=== PATIENT | female | born 1975 | race Caucasian/White ===

== ENCOUNTER 2018-05-22 13:26 | Emergency (ER) | payer BC ==
[2018-05-22] MEDS ORDERED: Morphine VIAL* 4 MG/ML VIAL (1 ml vial) IV ONE (18:03)
[2018-05-22] MEDS ORDERED: Ketorolac INJ* 30 MG/ML 1 ML VIAL IV PUSH ONE (18:03)
--- NOTE | 2018-05-22 18:38 | ED ---
GI/ HPI - HPI Summary HPI Summary: 43-year-old female presents with right lower quadrant pain for the past day. She has a history of ovarian cysts and states that it feels the same. She states the pain does not radiate anywhere. She denies any vaginal discharge. She has her tubes tied. No other surgeries. No nausea and vomiting. No diarrhea or constipation. No pain with urination. No frequency or urgency. Pain is 8 out of 10. laying down makes it better. no fevers. She hasn't taking anything for pain. She's had a normal appetite. - History of Current Complaint Chief Complaint: EDFlankPain Time Seen by Provider: 05/22/18 17:54 Stated Complaint: RT SIDE ABD PAIN Hx Last Menstrual Period: august 12 Pain Intensity: 9 - Allergy/Home Medications Allergies/Adverse Reactions: Allergies Allergy/AdvReac Type Severity Reaction Status Date / Time No Known Allergies Allergy Verified 04/14/16 13:30 PMH/Surg Hx/FS Hx/Imm Hx Endocrine/Hematology History: Denies: Hx Anticoagulant Therapy Respiratory History: Reports: Hx Asthma GI History: Reports: Hx Gastroesophageal Reflux Disease Musculoskeletal History: Reports: Hx Back Problems, Hx Scoliosis - Surgical History Surgery Procedure, Year, and Place: tubal ligation Infectious Disease History: No Infectious Disease History: Denies: History Other Infectious Disease, Traveled Outside the [place] in Last 30 Days - Family History Known Family History: Positive: Hypertension - FATHER - Social History Alcohol Use: None Hx Substance Use: No Substance Use Type: Reports: None Hx Tobacco Use: No Smoking Status (MU): Light Every Day Tobacco Smoker Review of Systems Negative: Fever Negative: Chest Pain Negative: Shortness Of Breath Positive: Abdominal Pain. Negative: Vomiting, Diarrhea, Nausea All Other Systems Reviewed And Are Negative: Yes Physical Exam Triage Information Reviewed: Yes Vital Signs On Initial Exam: Initial Vitals Temp Pulse Resp BP Pulse Ox 97.9 F 90 16 128/79 99 05/22/18 13:30 05/22/18 13:30 05/22/18 13:30 05/22/18 13:30 05/22/18 13:30 Vital Signs Reviewed: Yes Appearance: Positive: Well-Appearing Skin: Positive: Warm, Dry Head/Face: Positive: Normal Head/Face Inspection Eyes: Positive: Normal, Conjunctiva Clear ENT: Positive: Pharynx normal Respiratory/Lung Sounds: Positive: Clear to Auscultation, Breath Sounds Present Cardiovascular: Positive: Normal, RRR Abdomen Description: Positive: Soft, Other: - tenderness RLQ Bowel Sounds: Positive: Present Musculoskeletal: Positive: Normal Neurological: Positive: Normal Psychiatric: Positive: Normal Diagnostics - Vital Signs Vital Signs Temp Pulse Resp BP Pulse Ox 05/22/18 18:35 17 05/22/18 15:00 98.2 F 75 16 112/72 99 05/22/18 13:30 97.9 F 90 16 128/79 99 - Laboratory Result Diagrams: 05/22/18 19:01 05/22/18 19:01 Lab Statement: Any lab studies that have been ordered have been reviewed, and results considered in the medical decision making process. - Ultrasound No standard instances Ultrasound Interpretation: Positive (See Comments) - Ultrasound shows no ovarian cyst. only prominent vessels in left adnexa. Ultrasound Interpretation Completed By: Radiologist Re-Evaluation - Re-Evaluation First Eval Re-Evaluation Time: 19:55 Change: Improved Comment: pain is 3 out of 10 Second Eval Re-Evaluation Time: 22:13 Comment: discussed results with patient and states does not believe is appendix. was working out more and feels that may have pulled a muscle. GIGU Course/Dx - Course Course Of Treatment: 43-year-old female presents with right lower quadrant pain for the past day. She has a history of ovarian cysts and states that it feels the same. She states the pain does not radiate anywhere. She denies any vaginal discharge. She has her tubes tied. No other surgeries. No nausea and vomiting. No diarrhea or constipation. No pain with urination. No frequency or urgency. Pain is 8 out of 10. laying down makes it better. no fevers. She hasn't taking anything for pain. She's had a normal appetite. On exam tenderness in the right lower quadrant. Negative Rovsing's. wbc normal. CRP normal. Urine shows no UTI. Ultrasound shows no ovarian cyst. only prominent vessels in left adnexa. discussed with patient has mild pain currently. does not want CT. told to return if symptoms persist for a CT. patient understand and agrees with plan. - Diagnoses Differential Diagnoses - Female: Appendicitis, Ovarian Cyst, Ovarian Torsion, Urinary Tract Infection Provider Diagnoses: Abdominal pain Discharge - Sign-Out/Discharge Documenting (check all that apply): Patient Departure - Discharge Plan Condition: Good Disposition: HOME Patient Education Materials: Acute Abdominal Pain (ED) Referrals: Grazyna Smith MD [Primary Care Provider] - Additional Instructions: Take ibuprofen or Tylenol for pain as needed every 6 hours Follow up with primary within 5 days Return to ED if develop fever that does not respond to Tylenol or ibuprofen, severe abdominal pain, or any new or worsening symptoms - Billing Disposition and Condition Condition: GOOD Disposition: Home
[2018-05-22 19:12] LABS: ABS Basophils 0 10^3/ul (0-0.2); ABS Eosinophils 0.2 10^3/ul (0-0.6); ABS Lymphocytes 2.6 10^3/ul (1.0-4.8); ABS Monocytes 0.8 10^3/ul (0-0.8); ABS Neutrophils 3.7 10^3/ul (1.5-7.7); ABS Nucleated RBC 0 10^3/ul; Eosinophil % 2.5 % (0-6); Hematocrit 41 % (35-47); Hemoglobin 14.1 g/dl (12.0-16.0); Lymphocyte % 36.2 % (25-47); Mean Corpuscular HGB Conc 34 g/dl (31-36); Mean Corpuscular Hemoglobin 33 pg (27-31); Mean Corpuscular Volume 96 fL (80-97); Mean Platelet Volume 7.3 um3 (7.4-10.4); Nucleated Red Blood Cells % 0; Platelet Count 259 10^3/ul (150-450); Red Cell Distribution Width 14 % (10.5-15); White Blood Count 7.3 10^3/ul (3.5-10.8)
[2018-05-22 19:28] LABS: EGFR Non-African American 91.3 (>60)
[2018-05-22 19:30] LABS: Urine Appearance Cloudy; Urine Blood Negative (Negative); Urine Color Yellow; Urine Ketones 1+ (Negative); Urine Protein Negative (Negative); Urine Specific Gravity 1.023 (1.010-1.030); Urine Urobilinogen Negative (Negative)
[2018-05-22] MEDS ORDERED: NS 0.9% 1000 ML* 1,000 ML IV ONE (19:52)
[2018-05-22 21:38] VITALS: BP 118/67
--- NOTE | 2018-05-23 08:28 | RAD ---
HISTORY: RLQ pain, h/o ovarian cyst COMPARISONS: May 06, 2010 TECHNIQUE: Multiple transverse and longitudinal ultrasound images were obtained of the pelvis using grayscale, color Doppler, and spectral Doppler imaging using the endovaginal transducer. FINDINGS: UTERUS: The uterus measures 9.5 x 9.1 x 6.3 cm. The uterus is normal in shape, size, contour, and echotexture. There is prominence of the vasculature along the broad ligament on the left. ENDOMETRIUM: The endometrial stripe is smooth. The endometrium measures 0.6 cm in thickness. CUL-DE-SAC: There is no free fluid within the cul-de-sac. RIGHT OVARY: The right ovary measures 2.4 x 1.8 x 1.2 cm. Normal arterial and venous waveforms are identifiable within the ovary on spectral Doppler imaging. LEFT OVARY: The left ovary measures 3.1 x 1.2 x 1.1 cm. Normal arterial and venous waveforms are identifiable within the ovary on spectral Doppler imaging. BLADDER: The bladder is not well visualized. OTHER: None IMPRESSION: 1. NO SONOGRAPHIC FEATURES OF TORSION. PLEASE NOTE THAT PARTIAL OR INTERMITTENT TORSION MAY BE SONOGRAPHICALLY NORMAL. 2. PROMINENCE OF THE VASCULATURE ALONG THE LEFT ADNEXA. THIS NONSPECIFIC BUT CAN BE ASSOCIATED WITH PELVIC CONGESTION SYNDROME IN THE CORRECT CLINICAL SETTING. R0
== END 2018-05-22 22:38 | disposition home or self-care (01) ==
LOC: ED 13:26
DX: R10.31 Right lower quadrant pain (principal); F17.200 Nicotine dependence, unspecified, uncomplicated; Z98.51 Tubal ligation status; Z87.42 Personal history of other diseases of the female genital tract
CPT/HCPCS: 36415; 76830; 80053; 81003; 83690; 84702; 85025; 86140; 96374; 96375; 99283; J1885; J2270

== ENCOUNTER 2019-04-14 13:39 | Emergency (ER) | payer BC ==
--- NOTE | 2019-04-14 14:48 | ED ---
Neurological HPI - HPI Summary HPI Summary: This pt is a 44 y/o female, with sister and , presenting to [facility] via EMS for possible seizures. Pt reports that these episodes of "seizures" began about 4 weeks ago. Seizures are described as "shaking" and "head twitching." She denies any recent problems or triggers. Pt notes that her last episode prior to today was yesterday (2 episodes witnessed by her ) and before this she hadn't had one for about 1 week. Furthermore, pt states having about 1 episode every week. Denies LOC during these episodes. Pt states she is able to hear people but not able to respond. 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 Per nurse's note, pt had 15-20 witnessed seizures today at work. Upon arrival to the ED, per nurse's note pt c/o neck pain. Denies hx of head trauma. PMHx: asthma, gastroparesis, GERD, tubal ligation. She notes her GERD medication has been switched. Pt is a former smoker, quit around . She drinks alcohol occasionally - History of Current Complaint Chief Complaint: EDSeizure Stated Complaint: SEIZURE PER PT Time Seen by Provider: 04/14/19 14:25 Hx Obtained From: Patient Hx Last Menstrual Period: august 12 Onset/Duration: Started weeks ago - 4 Timing: Intermittent Episodes Lasting: - minutes Current Severity: Moderate Pain Intensity: 2 - neck pain Pain Scale Used: 0-10 Numeric Character: Other: - "seizures" Aggravating: Nothing Alleviating: Spontanious Resolution Associated Signs and Symptoms: Positive: Seizure, Pain - neck pain - Allergy/Home Medications Allergies/Adverse Reactions: Allergies Allergy/AdvReac Type Severity Reaction Status Date / Time No Known Allergies Allergy Verified 04/14/19 14:30 Home Medications: Home Medications Lansoprazole CAP (NF) [Prevacid CAP (NF)] 30 mg PO DAILY 04/14/19 [History Confirmed 04/14/19] PMH/Surg Hx/FS Hx/Imm Hx Endocrine/Hematology History: Denies: Hx Anticoagulant Therapy Respiratory History: Reports: Hx Asthma GI History: Reports: Hx Gastroesophageal Reflux Disease, Other GI Disorders - Gastroparesis Musculoskeletal History: Reports: Hx Back Problems, Hx Scoliosis - Surgical History Surgical History: Yes Surgery Procedure, Year, and Place: tubal ligation Infectious Disease History: No Infectious Disease History: Denies: History Other Infectious Disease, Traveled Outside the [place] in Last 30 Days - Family History Known Family History: Positive: Hypertension - FATHER - Social History Alcohol Use: Rare Hx Substance Use: No Substance Use Type: Reports: None Hx Tobacco Use: No Smoking Status (MU): Former Smoker Review of Systems Negative: Fever Cardiovascular: Negative Respiratory: Negative Musculoskeletal: Other - POS: neck pain Neurological: Other - POS: seizures All Other Systems Reviewed And Are Negative: Yes Physical Exam - Summary Physical Exam Summary: VITAL SIGNS: Reviewed. GENERAL: Patient is a well-developed and nourished female who is lying comfortable in the stretcher. Patient is not in any acute respiratory distress. HEAD AND FACE: No signs of trauma. No ecchymosis, hematomas or skull depressions. No sinus tenderness. EYES: PERRLA, EOMI x 2, No injected conjunctiva, no nystagmus. No photophobia. EARS: Hearing grossly intact. Ear canals and tympanic membranes are within normal limits. MOUTH: Oropharynx within normal limits. NECK: Supple, trachea is midline, no adenopathy, no JVD, no carotid bruit, no c- spine tenderness, neck with full ROM. No meningeal signs, no Kernig's or brudzinskis signs. CHEST: Symmetric, no tenderness at palpation LUNGS: Clear to auscultation bilaterally. No wheezing or crackles. CVS: Regular rate and rhythm, S1 and S2 present, no murmurs or gallops appreciated. ABDOMEN: Soft, non-tender. No signs of distention. No rebound no guarding, and no masses palpated. Bowel sounds are normal. EXTREMITIES: FROM in all major joints, no edema, no cyanosis or clubbing. NEURO: Alert and oriented x 3. No acute neurological deficits. Speech is normal and follows commands. SKIN: Dry and warm. GCS: 15 Triage Information Reviewed: Yes Vital Signs On Initial Exam: Initial Vitals Temp Pulse Resp BP Pulse Ox 98.5 F 76 18 126/74 100 04/14/19 14:12 04/14/19 14:12 04/14/19 14:12 04/14/19 14:12 04/14/19 14:12 Vital Signs Reviewed: Yes Diagnostics - Vital Signs Vital Signs Temp Pulse Resp BP Pulse Ox 04/14/19 14:12 98.5 F 76 18 126/74 100 - Laboratory Result Diagrams: 04/14/19 15:43 04/14/19 15:43 Lab Statement: Any lab studies that have been ordered have been reviewed, and results considered in the medical decision making process. - Radiology Chest XR Radiology Interpretation Completed By: Radiologist Summary of Radiographic Findings: IMPRESSION: No active cardiopulmonary disease. Dr. Tavarez has reviewed this report. - EKG 14:29 Cardiac Rate: NL - at 67 bpm EKG Rhythm: Sinus Rhythm Summary of EKG Findings: No ST elevations. Course/Dx - Course Assessment/Plan: This pt is a 44 y/o female, with sister and , presenting to [facility] via EMS for possible seizures. Pt reports that these episodes of "seizures" began about 4 weeks ago. Seizures are described as "shaking" and "head twitching." She denies any recent problems or triggers. Pt notes that her last episode prior to today was yesterday (2 episodes witnessed by her ) and before this she hadn't had one for about 1 week. Furthermore , pt states having about 1 episode every week. Denies LOC during these episodes. Pt states she is able to hear people but not able to respond. 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 Per nurse's note , pt had 15-20 witnessed seizures today at work. Upon arrival to the ED, per nurse's note pt c/o neck pain. Denies hx of head trauma. PMHx: asthma, gastroparesis, GERD, tubal ligation. She notes her GERD medication has been switched. Pt is a former smoker, quit around . She drinks alcohol occasionally. Test results without any significant abnormality. Chest x-ray impression: No acute cardiopulmonary disease. I discussed my physical exam and findings with Dr. Lau from neurology and he recommends for the patient to be transferred to another facility that has a nursing home continuous EEG monitoring. At this point I discussed my physical exam and findings with Dr. Richards neurologist from [facility] and she agrees for the patient to be transferred to her services. At this time the patient is alert and oriented 3 and she is hemodynamically stable. - Diagnoses Provider Diagnoses: Seizure - Physician Notifications Discussed Care Of Patient With: Amanda Lau Time Discussed With Above Provider: 17:06 Instructed by Provider To: Other - Discussed with Dr. Lau, neurologist, who recommends transfer to [facility] since we don't have intermediate accountant continuous EEG monitoring. [17:45] Spoke with transfer center at [facility] and will check on bed availability. [18:00] [facility] reports there are no beds available. [18:34] Candida, from [facility], reports she now has a bed available but we are awaiting neurosurgery to accept pt. [18:46] Dr. Alejo, neurosurgeon from [facility], does not have EEG monitoring tonight and cannot accept the pt. [19:16] Discussed the case with Dr. Richards, neurologist from [facility], who accepted the pt for transfer. Discharge - Sign-Out/Discharge Documenting (check all that apply): Patient Departure - Transfer to [facility] Patient Received Moderate/Deep Sedation with Procedure: No - Discharge Plan Condition: Stable Disposition: TRANS HIGHER LVL OF CARE FAC Referrals: Grazyna Smith MD [Primary Care Provider] - - Billing Disposition and Condition Condition: STABLE Disposition: Trans Higher Lvl of Care Fac - Attestation Statements Document Initiated by Scribe: Yes Documenting Scribe: Geneva Manning Provider For Whom Abdelrahman is Documenting (Include Credential): Francisco Tavarez MD Scriblevi Attestation: Geneva Huff, scribed for Francisco Tavarez MD on 04/14/19 at 1953. Scribe Documentation Reviewed: Yes Provider Attestation: The documentation as recorded by the Geneva hodge accurately reflects the service I personally performed and the decisions made by me, Francisco Tavarez MD Status of Scribe Document: Viewed
[2019-04-14 16:03] LABS: ABS Basophils 0.1 10^3/ul (0-0.2); ABS Eosinophils 0.1 10^3/ul (0-0.6); ABS Monocytes 0.7 10^3/ul (0-0.8); ABS Neutrophils 5.7 10^3/ul (1.5-7.7); Eosinophil % 1.1 %; Hematocrit 43 % (35-47); Hemoglobin 14.2 g/dL (12.0-16.0); Lymphocyte % 23.2 %; Mean Corpuscular HGB Conc 33 g/dL (31-36); Mean Corpuscular Hemoglobin 32 pg (27-31); Mean Corpuscular Volume 95 fL (80-97); Mean Platelet Volume 7.4 fL (7.4-10.4); Nucleated Red Blood Cells % 0.1; Platelet Count 285 10^3/uL (150-450); Red Blood Count 4.49 10^6 /uL (3.70-4.87); Red Cell Distribution Width 13 % (10-15); White Blood Count 8.6 10^3/uL (3.5-10.8)
[2019-04-14 16:07] LABS: Activated Partial Thrombo Time 31.7 seconds (26.0-38.0); INR 0.96 (0.82-1.09)
[2019-04-14 16:46] LABS: TSH (Thyroid Stimulating Horm) 1.48 mcIU/mL (0.34-5.60)
[2019-04-14 16:49] LABS: ALT 14 U/L (7-52); AST 17 U/L (13-39); Albumin 4.4 g/dL (3.2-5.2); Albumin/Globulin Ratio 1.6 (1-3); Alkaline Phosphatase 48 U/L (34-104); Anion Gap 7 mmol/L (2-11); BUN/Creatinine Ratio 17.1 (8-20); Blood Urea Nitrogen 13 mg/dL (6-24); CO2 Carbon Dioxide 26 mmol/L (22-32); Calcium 9.3 mg/dL (8.6-10.3); Chloride 108 mmol/L (101-111); Creatine Kinase 60 U/L (10-223); EGFR Non-African American 82.7 (>60); Globulin 2.7 g/dL (2-4); Glucose 78 mg/dL (70-100); Magnesium 2.3 mg/dL (1.9-2.7); Potassium 4.4 mmol/L (3.5-5.0); Sodium 141 mmol/L (135-145); Total Protein 7.1 g/dL (6.4-8.9)
[2019-04-14 17:13] LABS: Alcohol < 10 mg/dL (<10)
[2019-04-14 19:43] VITALS: BP 116/80
[2019-04-14 20:15] LABS: Urine Appearance Cloudy; Urine Bacteria Absent (Absent); Urine Bilirubin Negative (Negative); Urine Blood 2+ (Negative); Urine Color Yellow; Urine Glucose Negative (Negative); Urine Ketones Trace (Negative); Urine Nitrite Negative (Negative); Urine Protein Negative (Negative); Urine Red Blood Cell 2+(6-10/hpf) (Absent); Urine Specific Gravity 1.012 (1.010-1.030); Urine Squamous Epithelial Cell Present (Absent); Urine Urobilinogen Negative (Negative); Urine White Blood Cell Absent (Absent)
[2019-04-14 20:44] LABS: Urine Benzodiazepine Screen Presumptive Positive (None Detect); Urine Opiates Screen None Detected (None Detect)
== END 2019-04-14 20:46 | disposition short-term general hospital (02) ==
LOC: ED 13:39
DX: R56.9 Unspecified convulsions (principal); M54.2 Cervicalgia; K21.9 Gastro-esophageal reflux disease without esophagitis; Z87.891 Personal history of nicotine dependence
CPT/HCPCS: 36415; 71045; 80053; 80307; 80320; 81003; 81015; 82550; 83605; 83735; 84443; 85025; 85610; 85730; 93005; 99283; G0480